=== PATIENT | male | born 1970 | race Caucasian/White ===

== ENCOUNTER 2018-02-07 06:13 | Day surgery (SDC) | payer OTHER ==
[~2018-02-07 06:13] MED LIST: CEFAZOLIN 1 GM/50 ML (PMX) 50 ML IVPB
[2018-02-07] MEDS ORDERED: FENTAnyl 50 MCG/ML VIAL ×2 (06:29→09:16)
[2018-02-07] MEDS ORDERED: LIDOCAINE 2% (SDV) 5 ML INJ (06:29)
[2018-02-07] MEDS ORDERED: MIDAZOLAM 1 MG/ML 2 ML INJ (06:29)
[2018-02-07] MEDS ORDERED: NEOSTIGMINE 3 MG/3 ML SYRINGE (06:29)
[2018-02-07] MEDS ORDERED: DEXAMETHASONE 4 MG/ML 1 ML INJ (06:29)
[2018-02-07] MEDS ORDERED: PROPOFOL 20 ML (06:29)
[2018-02-07] MEDS ORDERED: ONDANSETRON 4 MG INJ (06:29)
[2018-02-07] MEDS ORDERED: ROCURONIUM 50 MG INJ (06:29)
[2018-02-07] MEDS ORDERED: GLYCOPYRROLATE 0.4 MG INJ (06:29)
[2018-02-07] MEDS ORDERED: ATROPINE 1 MG/10 ML SYRINGE IV (06:30)
[2018-02-07] MEDS ORDERED: HYDROmorphONE 1 MG/5 ML IV SYRINGE IV ×2 (06:30)
[2018-02-07] MEDS ORDERED: morphine (1 MG/ML) 10ML SYRINGE IV ×3 (06:30)
[2018-02-07] MEDS ORDERED: MEPERIDINE 25 MG INJ IV (06:30)
[2018-02-07] MEDS ORDERED: DIPHENHYDRAMINE 50 MG INJ IV (06:30)
[2018-02-07] MEDS ORDERED: hydrALAzine 20 MG INJ IV (06:30)
[2018-02-07] MEDS ORDERED: FENTAnyl 50 MCG/ML VIAL IV ×2 (06:30)
[2018-02-07] MEDS ORDERED: ONDANSETRON 4 MG INJ IV (06:30)
[2018-02-07] MEDS ORDERED: OXYCODONE/ACETAMINOPHEN (5/325) TAB PO (06:30)
[2018-02-07] MEDS ORDERED: MIDAZOLAM 1 MG/ML 2 ML INJ IV (06:30)
[2018-02-07] MEDS ORDERED: EPHEDrine SULFATE 50 MG/5 ML SYG IV (06:30)
[2018-02-07] MEDS ORDERED: LABETALOL HCL 20MG INJ IV (06:30)
[2018-02-07] MEDS: POLYMYXIN/BACITRACIN 1L IRRIG IRR (07:01)
[2018-02-07] MEDS: BUPIVACAINE 0.25% (STERILE-PAK) 30 ML INJ INJ (07:03)
[2018-02-07] MEDS: BUPIVACAINE 0.5% (MPF) 30 ML INJ INJ (07:03)
[2018-02-07] MEDS: LIDOCAINE 1% (MPF) 30 ML INJ INJ (07:03)
[2018-02-07] MEDS ORDERED: LIDOCAINE 1% (MPF) 30 ML INJ (07:06)
[2018-02-07] MEDS ORDERED: POLYMYXIN/BACITRACIN 1L IRRIG (07:06)
[2018-02-07] MEDS ORDERED: BUPIVACAINE 0.25% (MPF) 30 ML INJ (07:06)
[2018-02-07 07:17] LABS: ADD MAN DIFF? NO
[2018-02-07] MEDS: SOD CHLORIDE 0.9% 1,000 ML IV (07:19)
[2018-02-07 07:22] LABS: BASOPHILS % 0.5 % (0.0-2.0); EOSINOPHILS # 0.1 10^3/ul (0.0-0.5); EOSINOPHILS % 1.7 % (0.0-7.0); HEMATOCRIT 45.6 % (42.0-52.0); HEMOGLOBIN 15.8 g/dl (14.0-18.0); LYMPHOCYTES # 1.8 10^3/ul (0.8-2.9); LYMPHOCYTES % 29.8 % (15.0-51.0); MEAN CORPUSCULAR HEMOGLOBIN 31.7 pg (29.0-33.0); MEAN CORPUSCULAR HGB CONC 34.6 g/dl (32.0-37.0); MEAN CORPUSCULAR VOLUME 91.4 fl (82.0-101.0); MONOCYTE # 0.7 10^3/ul (0.3-0.9); MONOCYTES % 12.1 % (0.0-11.0); NEUTROPHIL # 3.3 10^3/ul (1.6-7.5); NEUTROPHILS % 55.4 % (39.0-77.0); PLATELET COUNT 269 10^3/UL (140-415); RED BLOOD COUNT 4.99 10^6/ul (4.70-6.10); RED CELL DISTRIBUTION WIDTH 12.6 % (11.5-14.5)
[2018-02-07 07:22] LABS: WHITE BLOOD COUNT 5.9 10^3/ul (4.8-10.8)
[2018-02-07 07:24] LABS: PARTIAL THROMBOPLASTIN TIME 28.1 Sec (25.0-35.0); PROTIME 12.2 Sec (11.9-14.9)
[2018-02-07 07:31] LABS: ALANINE AMINOTRANSFERASE 31 IU/L (13-69); ALBUMIN 4.4 g/dl (3.3-4.9); ALBUMIN/GLOBULIN RATIO 1.29; ALKALINE PHOSPHATASE 98 IU/L (42-121); ANION GAP 15 (8-16); ASPARTATE AMINO TRANSFERASE 30 IU/L (15-46); BILIRUBIN,INDIRECT 0.2 mg/dl (0-1.1); BILIRUBIN,TOTAL 0.2 mg/dl (0.2-1.3); BLOOD UREA NITROGEN 14 mg/dl (7-20); CALCIUM 9.7 mg/dl (8.4-10.2); CARBON DIOXIDE 24 mmol/L (21-31); CHLORIDE 108 mmol/L (97-110); CREATININE 0.55 mg/dl (0.61-1.24); GLUCOSE 130 mg/dl (70-220); POTASSIUM 4.3 mmol/L (3.5-5.1); SODIUM 143 mmol/L (135-144); TOTAL PROTEIN 7.8 g/dl (6.1-8.1)
[2018-02-07] MEDS ORDERED: ALBUTEROL 0.083% (NEB) 2.5 MG/3 ML AMP (07:49)
[2018-02-07] MEDS ORDERED: ROPIVACAINE 0.5 % 30 ML VIAL (07:57)
[2018-02-07] MEDS ORDERED: LABETALOL HCL 20MG INJ (07:57)
[2018-02-07] MEDS ORDERED: BUPIVACAINE 0.5% (SDV) 30 ML INJ (07:57)
[2018-02-07] MEDS ORDERED: KETOROLAC 30 MG INJ (09:52)
[2018-02-07] MEDS ORDERED: FLUMAZENIL 0.5 MG INJ (10:17)
[2018-02-07] MEDS: HYDROmorphONE 1 MG/5 ML IV SYRINGE IV (10:36)
[2018-02-07] MEDS: OXYCODONE/ACETAMINOPHEN (5/325) TAB PO (11:29)
== END 2018-02-07 12:45 | disposition home or self-care (01) ==
LOC: SDS 06:13
DX: K40.20 Bilateral inguinal hernia, without obstruction or gangrene, not specified as recurrent (principal); K42.9 Umbilical hernia without obstruction or gangrene; K43.9 Ventral hernia without obstruction or gangrene; I10 Essential (primary) hypertension; E78.00 Pure hypercholesterolemia, unspecified; E11.9 Type 2 diabetes mellitus without complications; E78.5 Hyperlipidemia, unspecified
CPT/HCPCS: 49505; 80053; 82962; 85025; 85610; 85730; 93005